=== PATIENT | male | born 1985 | race Caucasian/White ===

== ENCOUNTER 2023-09-20 16:37 | Inpatient (IN) | payer OTHER ==
[~2023-09-20] VITALS: Ht 182.9 cm; Wt 95.0 kg
[~2023-09-20 16:37] MED LIST: EPIPEN 2-PAK1 MG/ML IM; PREDNISONE50 MG PO
[2023-09-20] MEDS ORDERED: NS 100 ML IV SCH (17:00)
[2023-09-20] MEDS ORDERED: Iohexol 300 - 100 ML VIAL IV ONE (17:00)
[2023-09-20] MEDS ORDERED: LR 1,000 ML IV ONE (17:00)
[2023-09-20] MEDS ORDERED: Morphine 4 MG/ML VIAL IV PRN (18:45)
[2023-09-20] MEDS ORDERED: Ondansetron 4 MG/2 ML VIAL IV PRN ×2 (18:45→19:00)
[2023-09-20] MEDS ORDERED: HYDROmorphone 1 MG/1 ML SYRINGE [PACU/SDC ONLY] IV PRN (19:00)
[2023-09-20] MEDS ORDERED: Morphine 2 MG/1 ML VIAL [PACU/SDC ONLY] IV PRN (19:00)
[2023-09-20] MEDS ORDERED: hydrALAZINE 20 MG/ML 1 ML VIAL IV PRN (19:00)
[2023-09-20] MEDS ORDERED: LR 1,000 ML IV SCH (19:00)
[2023-09-20] MEDS ORDERED: fentaNYL 50 MCG/ML 1 ML SYRINGE/VIAL [PACU/SDC ONLY] IV PRN (19:00)
[2023-09-20] MEDS ORDERED: droPERidol 2.5 MG/ML 2 ML VIAL IV PRN (19:00)
[2023-09-20] MEDS ORDERED: Rocuronium 50 MG/5 ML Multi-Dose VIAL ONE (20:11)
[2023-09-20] MEDS ORDERED: fentaNYL 50 MCG/ML 2 ML VIAL ONE (20:11)
[2023-09-20] MEDS ORDERED: Ketorolac 30 MG/ML VIAL ONE (20:12)
[2023-09-20] MEDS ORDERED: Ondansetron 4 MG/2 ML VIAL ONE (20:12)
[2023-09-20] MEDS ORDERED: dexAMETHasone 10 MG/ML VIAL ONE (20:12)
[2023-09-20] MEDS ORDERED: Glycopyrrolate 0.2 MG/ML 1 ML VIAL ONE (20:12)
[2023-09-20] MEDS ORDERED: Lidocaine PF 2% (20 MG/ML) 5 ML VIAL ONE (20:13)
[2023-09-20] MEDS ORDERED: NORCO 325 MG-51 TAB PO (22:08)
[2023-09-20 22:10] VITALS: BP 139/91; PULSE 65; TEMP 98
[2023-09-20 22:25] VITALS: BP 144/84; PULSE 66; TEMP 98
[2023-09-20 22:40] VITALS: BP 135/76; PULSE 78; TEMP 97.6
[2023-09-20 22:55] VITALS: BP 128/72; PULSE 64; TEMP 97.9
[2023-09-20 23:10] VITALS: BP 122/74; PULSE 70; TEMP 97.6
--- NOTE | 2023-09-20 23:21 | NUR ---
Patient arrived to surgical unit from PACU at approximately 2210. Alert and oriented, and able to make needs known. Denies having pain and discomfort. Denies nausea and upset stomach. Orders to discharge home if he meets criteria. Patient ate applesauce and drank water without any nausea. Patient able to void without difficulty. Peripheral INT to right forearm D/C'd. Went over discharge paperwork with patient. Voiced understanding. Patient assisted out via wheelchair by [facility] employee at this time. Mom with patient.
== END 2023-09-20 23:21 | disposition home or self-care (01) | DRG 399 ==
LOC: COL.ER 16:37 → SURG 20:51
PROVIDERS: ADMIT Surgery
PROC: 0DTJ4ZZ Resection of Appendix, Percutaneous Endoscopic Approach (ICD-10-PCS; principal; 2023-09-20 20:30)
DX: K35.80 Unspecified acute appendicitis (principal); R73.9 Hyperglycemia, unspecified; R73.03 Prediabetes; Z88.8 Allergy status to other drugs, medicaments and biological substances; Z87.891 Personal history of nicotine dependence
CPT/HCPCS: G0378; J1100; J1885; J2405; J2543; J2704; J3010; J7120; Q9967